=== PATIENT | male | born 1990 | race Caucasian/White ===

== ENCOUNTER 2016-07-26 08:52 | Emergency (ER) | payer MEDICAID ==
[2016-07-26 09:46] VITALS: BP 128/74
== END 2016-07-26 09:46 | disposition home or self-care (01) ==
LOC: ED 08:52
DX: B34.9 Viral infection, unspecified (principal); R03.0 Elevated blood-pressure reading, without diagnosis of hypertension
CPT/HCPCS: J1885; J7613; J7644; Q0092; Q0162

== ENCOUNTER 2016-08-23 16:34 | Emergency (ER) | payer MEDICAID ==
[~2016-08-23] VITALS: Ht 177.8 cm; Wt 122.5 kg
[2016-08-23 17:55] VITALS: BP 130/92
== END 2016-08-23 17:55 | disposition home or self-care (01) ==
LOC: ED 16:34
DX: K04.7 Periapical abscess without sinus (principal)

== ENCOUNTER 2016-10-07 15:49 | Emergency (ER) | payer SELFPAY ==
[~2016-10-07] VITALS: Ht 167.6 cm; Wt 119.5 kg
[2016-10-07 17:21] VITALS: BP 151/72
== END 2016-10-07 17:21 | disposition home or self-care (01) ==
LOC: ED 15:49
DX: S60.221A Contusion of right hand, initial encounter (principal); V87.8XXA Person injured in other specified noncollision transport accidents involving motor vehicle (traffic), initial encounter; Y93.89 Activity, other specified; Y92.89 Other specified places as the place of occurrence of the external cause; Y99.8 Other external cause status